=== PATIENT | female | born 1970 | race Caucasian/White ===

== ENCOUNTER → 2020-06-13 | Outpatient (CLI) | payer BC, OTHER ==
[~2020-06-13] MED LIST: ACET325T14 PO; AMOX1TAB12 PO; DOCU-131 PO; HYDR-3240 PO; IBUP-1222 PO; SENN-177 PO; SIME80TA15 PO; THYROID OTC PO
== END | disposition home or self-care (01) ==
LOC: CFH 09:07
PROVIDERS: ATTEND Nurse Practitioner Family
DX: N64.3 Galactorrhea not associated with childbirth (principal); N64.52 Nipple discharge
CPT/HCPCS: 76642; 77062; 77066; G0279